=== PATIENT | female | born 1970 | race Caucasian/White ===

== ENCOUNTER → 2018-07-27 | Day surgery (SDC) | payer OTHER ==
[~2018-07-27] MED LIST: NAPR500T14 PO; NIGHTTIME SLEEP25 M1 PO; TYLENOL325 MG PO; ZITHROMAX TRI-500 MG PO; ZITHROMAX500 MG PO
== END | disposition home or self-care (01) ==
LOC: ADM 07-18 14:30 → CIR.AMB 05:40
DX: N84.0 Polyp of corpus uteri (principal); N72 Inflammatory disease of cervix uteri